=== PATIENT | female | born 1995 | race Two or more races ===

== ENCOUNTER 2019-08-13 10:02 | Observation (INO) | payer MEDICAID ==
[2019-08-13] MEDS ORDERED: PREN-96 PO (10:50)
[2019-08-13 11:08] LABS: Basophils # (auto) 0 10 ^3/uL (0-0.2); Basophils % (auto) 0.4 % (0.0-2.0); Eosinophils # (auto) 0.1 10 ^3/uL (0-0.8); Eosinophils % (auto) 0.7 % (0.0-7.0); Hematocrit 35.9 % (36.0-46.0); Hemoglobin 12.2 g/dL (12.2-16.2); Lymphocytes # (auto) 1.9 10 ^3/uL (0.4-5.4); Lymphocytes % (auto) 25.7 % (10.0-50.0); Mean Corpuscular Hemoglobin 30.8 pg (28.0-32.0); Mean Corpuscular Hgb Conc. 33.9 g/dL (32.0-36.0); Mean Corpuscular Volume 90.9 fL (80.0-100.0); Monocytes # (auto) 0.6 10 ^3/uL (0-1.3); Monocytes % (auto) 7.9 % (0.0-12.0); Neutrophils # (auto) 4.9 10 ^3/uL (1.6-8.6); Neutrophils % (auto) 65.3 % (37.0-80.0); Nucleated Red Blood Cells % 0.1 %; Platelet Count (auto) 252 10^3/uL (140-450); Red Blood Cells 3.95 10^6/uL (4.0-5.20); Red Cell Distribution Width 13.6 % (11.8-14.3); White Blood Cell 7.5 10^3/uL (4.4-10.8)
[2019-08-13 11:12] LABS: Urine Bacteria MANY /hpf (None Seen); Urine Blood 1+ /uL (Negative); Urine Mucus FEW (None Seen); Urine Specific Gravity 1.022 (1.001-1.035); Urine WBC 95 /hpf (0 - 5); Urine WBC Clumps PRESENT /hpf (None Seen)
[2019-08-13 11:24] LABS: INR 0.96 (0.9-1.15); Partial Thromboplastin Time 25.4 sec (23.64-32.05)
[2019-08-13 11:27] LABS: Albumin 2.4 g/dL (3.4-5.0); Calcium 8.7 mg/dL (8.5-10.1); Potassium 3.9 mmol/L (3.5-5.1); Uric Acid 5.3 mg/dL (2.6-6.0)
[2019-08-13 11:29] LABS: BUN/Creatinine Ratio 15.1; Bilirubin, Total 0.1 mg/dL (0.2-1.0); Total Protein 6.8 g/dL (6.4-8.2)
== END 2019-08-13 13:00 | disposition home or self-care (01) | DRG 566 ==
LOC: LDRP 10:02
PROVIDERS: ADMIT Obstetrics & Gynecology; ATTEND Obstetrics & Gynecology
DX: O13.9 Gestational [pregnancy-induced] hypertension without significant proteinuria, unspecified trimester (principal); Z3A.00 Weeks of gestation of pregnancy not specified
CPT/HCPCS: 36415; 59025; 80053; 81001; 81002; 84550; 85025; 85610; 85730; G0378

== ENCOUNTER 2019-08-17 09:33 | Observation (INO) | payer MEDICAID ==
[~2019-08-17] VITALS: Ht 162.6 cm; Wt 107.0 kg
[~2019-08-17 09:33] MED LIST: PREN-96 PO
[2019-08-17 10:11] LABS: Protein, Urine 28.7 mg/dL (0.0-11.9)
[2019-08-17 10:19] LABS: 24 Hr. Total Protein, Urine 817.9 mg/24 Hr (<149.1)
[2019-08-17] MEDS ORDERED: TERBUTALINE SULFATE 1 MG/ML 1ML VIAL SC ONE (11:00)
[2019-08-17] MEDS ORDERED: BETAMETHASONE ACET (6MG/ML) 5ML VIAL IM ONE (11:00)
== END 2019-08-17 12:00 | disposition home or self-care (01) | DRG 566 ==
LOC: LDRP 09:33
PROVIDERS: ADMIT Obstetrics & Gynecology; ATTEND Obstetrics & Gynecology
DX: O13.9 Gestational [pregnancy-induced] hypertension without significant proteinuria, unspecified trimester (principal); O60.00 Preterm labor without delivery, unspecified trimester; Z3A.00 Weeks of gestation of pregnancy not specified
CPT/HCPCS: 59025; 81002; 84156; 96372; G0378; J0702; J3105

== ENCOUNTER 2019-08-18 10:53 | Observation (INO) | payer MEDICAID ==
[2019-08-18] MEDS ORDERED: BETAMETHASONE ACET (6MG/ML) 5ML VIAL IM ONE (11:15)
== END 2019-08-18 12:57 | disposition home or self-care (01) | DRG 566 ==
LOC: LDRP 10:53
PROVIDERS: ADMIT Obstetrics & Gynecology; ATTEND Obstetrics & Gynecology
DX: O13.9 Gestational [pregnancy-induced] hypertension without significant proteinuria, unspecified trimester (principal); O60.00 Preterm labor without delivery, unspecified trimester; Z3A.00 Weeks of gestation of pregnancy not specified
CPT/HCPCS: 59025; 81002; 96372; G0378

== ENCOUNTER 2019-08-24 10:16 | Observation (INO) | payer MEDICAID ==
[2019-08-24 11:37] LABS: Basophils # (auto) 0 10 ^3/uL (0-0.2); Basophils % (auto) 0.4 % (0.0-2.0); Eosinophils # (auto) 0 10 ^3/uL (0-0.8); Eosinophils % (auto) 0.4 % (0.0-7.0); Hematocrit 35.4 % (36.0-46.0); Hemoglobin 12.2 g/dL (12.2-16.2); Lymphocytes # (auto) 2.3 10 ^3/uL (0.4-5.4); Lymphocytes % (auto) 22.6 % (10.0-50.0); Mean Corpuscular Hemoglobin 31.4 pg (28.0-32.0); Mean Corpuscular Hgb Conc. 34.6 g/dL (32.0-36.0); Mean Corpuscular Volume 90.9 fL (80.0-100.0); Monocytes # (auto) 0.6 10 ^3/uL (0-1.3); Monocytes % (auto) 6.1 % (0.0-12.0); Neutrophils % (auto) 70.5 % (37.0-80.0); Platelet Count (auto) 244 10^3/uL (140-450); Red Blood Cells 3.89 10^6/uL (4.0-5.20); Red Cell Distribution Width 13.4 % (11.8-14.3)
[2019-08-24 11:51] LABS: INR 0.94 (0.9-1.15); Partial Thromboplastin Time 24.8 sec (23.64-32.05)
[2019-08-24 11:56] LABS: Albumin 2.3 g/dL (3.4-5.0); Calcium 8.1 mg/dL (8.5-10.1); Potassium 3.8 mmol/L (3.5-5.1)
[2019-08-24 12:00] LABS: BUN/Creatinine Ratio 22.4; Bilirubin, Total 0.1 mg/dL (0.2-1.0); Total Protein 6.6 g/dL (6.4-8.2)
== END 2019-08-24 11:35 | disposition home or self-care (01) | DRG 563 ==
LOC: LDRP 10:16
PROVIDERS: ADMIT Specialist; ATTEND Specialist
DX: O60.00 Preterm labor without delivery, unspecified trimester (principal); Z3A.00 Weeks of gestation of pregnancy not specified
CPT/HCPCS: 36415; 76818; 80053; 81002; 84550; 85025; 85610; 85730; G0378; 59025

== ENCOUNTER 2019-09-02 10:15 | Observation (INO) | payer MEDICAID ==
[~2019-09-02] VITALS: Ht 162.6 cm; Wt 95.3 kg
[2019-09-02] MEDS ORDERED: BETAMETHASONE ACET (6MG/ML) 5ML VIAL IM ONE (11:45)
[2019-09-02] MEDS ORDERED: NIF10C PO (12:09)
== END 2019-09-02 12:05 | disposition home or self-care (01) | DRG 566 ==
LOC: LDRP 10:15
PROVIDERS: ADMIT Obstetrics & Gynecology; ATTEND Obstetrics & Gynecology
DX: O13.3 Gestational [pregnancy-induced] hypertension without significant proteinuria, third trimester (principal); Z3A.32 32 weeks gestation of pregnancy
CPT/HCPCS: 76818; 81002; 96372; G0378; J0702

== ENCOUNTER 2019-09-03 09:45 | Observation (INO) | payer MEDICAID ==
[~2019-09-03 09:45] MED LIST changes: +NIF10C PO
[2019-09-03 10:56] LABS: Basophils # (auto) 0 10 ^3/uL (0-0.2); Basophils % (auto) 0.4 % (0.0-2.0); Eosinophils # (auto) 0 10 ^3/uL (0-0.8); Eosinophils % (auto) 0.4 % (0.0-7.0); Hematocrit 35.5 % (36.0-46.0); Hemoglobin 11.8 g/dL (12.2-16.2); Lymphocytes # (auto) 2.3 10 ^3/uL (0.4-5.4); Lymphocytes % (auto) 24.3 % (10.0-50.0); Mean Corpuscular Hemoglobin 30.4 pg (28.0-32.0); Mean Corpuscular Hgb Conc. 33.2 g/dL (32.0-36.0); Mean Corpuscular Volume 91.7 fL (80.0-100.0); Monocytes # (auto) 0.6 10 ^3/uL (0-1.3); Monocytes % (auto) 6.5 % (0.0-12.0); Neutrophils # (auto) 6.6 10 ^3/uL (1.6-8.6); Neutrophils % (auto) 68.4 % (37.0-80.0); Platelet Count (auto) 227 10^3/uL (140-450); Red Blood Cells 3.87 10^6/uL (4.0-5.20); Red Cell Distribution Width 13.7 % (11.8-14.3); White Blood Cell 9.6 10^3/uL (4.4-10.8)
[2019-09-03 11:06] LABS: INR 0.91 (0.9-1.15); Partial Thromboplastin Time 25.6 sec (23.64-32.05)
[2019-09-03 11:08] LABS: Urine Bacteria MOD /hpf (None Seen); Urine Blood TRACE /uL (Negative); Urine Mucus FEW (None Seen); Urine Specific Gravity 1.017 (1.001-1.035); Urine WBC 56 /hpf (0 - 5)
[2019-09-03 11:15] LABS: Calcium 8.1 mg/dL (8.5-10.1); Potassium 3.7 mmol/L (3.5-5.1)
[2019-09-03 11:18] LABS: Bilirubin, Total 0.2 mg/dL (0.2-1.0); Total Protein 6.4 g/dL (6.4-8.2); Uric Acid 6.1 mg/dL (2.6-6.0)
== END 2019-09-03 12:07 | disposition home or self-care (01) | DRG 566 ==
LOC: LDRP 09:45
PROVIDERS: ADMIT Specialist; ATTEND Specialist
DX: O13.3 Gestational [pregnancy-induced] hypertension without significant proteinuria, third trimester (principal); Z3A.32 32 weeks gestation of pregnancy
CPT/HCPCS: 36415; 59025; 80053; 81001; 84550; 85025; 85610; 85730; G0378

== ENCOUNTER 2019-09-05 09:17 | Observation (INO) | payer MEDICAID ==
[2019-09-05 10:03] LABS: Urine Bacteria NONE SEEN /hpf (None Seen); Urine Blood Negative /uL (Negative); Urine Specific Gravity 1.013 (1.001-1.035); Urine WBC 18 /hpf (0 - 5)
[2019-09-05 11:43] LABS: Basophils # (auto) 0 10 ^3/uL (0-0.2); Basophils % (auto) 0.2 % (0.0-2.0); Eosinophils # (auto) 0 10 ^3/uL (0-0.8); Eosinophils % (auto) 0.6 % (0.0-7.0); Hematocrit 35.9 % (36.0-46.0); Hemoglobin 11.8 g/dL (12.2-16.2); Lymphocytes # (auto) 2.7 10 ^3/uL (0.4-5.4); Lymphocytes % (auto) 33.4 % (10.0-50.0); Mean Corpuscular Hemoglobin 30.1 pg (28.0-32.0); Mean Corpuscular Hgb Conc. 32.7 g/dL (32.0-36.0); Mean Corpuscular Volume 91.8 fL (80.0-100.0); Monocytes # (auto) 0.6 10 ^3/uL (0-1.3); Monocytes % (auto) 6.9 % (0.0-12.0); Neutrophils # (auto) 4.7 10 ^3/uL (1.6-8.6); Neutrophils % (auto) 58.9 % (37.0-80.0); Nucleated Red Blood Cells % 0.1 %; Platelet Count (auto) 229 10^3/uL (140-450); Red Blood Cells 3.91 10^6/uL (4.0-5.20); Red Cell Distribution Width 13.9 % (11.8-14.3)
[2019-09-05 11:54] LABS: INR 0.92 (0.9-1.15); Partial Thromboplastin Time 25.4 sec (23.64-32.05)
[2019-09-05 11:59] LABS: Calcium 8.2 mg/dL (8.5-10.1); Potassium 3.8 mmol/L (3.5-5.1)
[2019-09-05 12:03] LABS: BUN/Creatinine Ratio 18.6; Bilirubin, Total 0.1 mg/dL (0.2-1.0); Total Protein 6.3 g/dL (6.4-8.2); Uric Acid 5.6 mg/dL (2.6-6.0)
== END 2019-09-05 12:25 | disposition home or self-care (01) | DRG 566 ==
LOC: LDRP 09:17
PROVIDERS: ADMIT Obstetrics & Gynecology; ATTEND Obstetrics & Gynecology
DX: O13.3 Gestational [pregnancy-induced] hypertension without significant proteinuria, third trimester (principal); O60.03 Preterm labor without delivery, third trimester; Z3A.32 32 weeks gestation of pregnancy
CPT/HCPCS: 36415; 59025; 76818; 80053; 81001; 81002; 84156; 84550; 85025; 85610; 85730; G0378

== ENCOUNTER 2019-09-07 13:27 | Observation (INO) | payer MEDICAID | END 2019-09-07 16:40 | disposition home or self-care (01) | DRG 566 | LOC: LDRP 13:27 | PROVIDERS: ADMIT Specialist; ATTEND Specialist | DX: O13.3 Gestational [pregnancy-induced] hypertension without significant proteinuria, third trimester (principal); Z3A.33 33 weeks gestation of pregnancy | CPT/HCPCS: 76818; 81002; G0378 ==

== ENCOUNTER 2019-09-10 13:44 | Inpatient (IN) | payer MEDICAID ==
[~2019-09-10] VITALS: Ht 162.6 cm; Wt 104.3 kg
[2019-09-10] VITALS (7 sets, daily range): BP systolic 138–147; BP diastolic 72–88
[2019-09-10] MEDS ORDERED: ACET-1156 PO (15:18)
[2019-09-10 15:57] LABS: Basophils # (auto) 0 10 ^3/uL (0-0.2); Basophils % (auto) 0.3 % (0.0-2.0); Eosinophils # (auto) 0 10 ^3/uL (0-0.8); Eosinophils % (auto) 0.6 % (0.0-7.0); Hemoglobin 12.3 g/dL (12.2-16.2); Lymphocytes # (auto) 2.6 10 ^3/uL (0.4-5.4); Lymphocytes % (auto) 32.6 % (10.0-50.0); Mean Corpuscular Hemoglobin 30.6 pg (28.0-32.0); Mean Corpuscular Hgb Conc. 33.3 g/dL (32.0-36.0); Mean Corpuscular Volume 91.9 fL (80.0-100.0); Monocytes # (auto) 0.7 10 ^3/uL (0-1.3); Monocytes % (auto) 8.4 % (0.0-12.0); Neutrophils # (auto) 4.6 10 ^3/uL (1.6-8.6); Neutrophils % (auto) 58.1 % (37.0-80.0); Platelet Count (auto) 231 10^3/uL (140-450); Red Blood Cells 4.02 10^6/uL (4.0-5.20); Red Cell Distribution Width 14.2 % (11.8-14.3); White Blood Cell 7.9 10^3/uL (4.4-10.8)
[2019-09-10 15:59] LABS: Urine Bacteria FEW /hpf (None Seen); Urine Blood Negative /uL (Negative); Urine Hyaline Cast FEW /lpf (0 - 2); Urine Specific Gravity 1.012 (1.001-1.035); Urine WBC 14 /hpf (0 - 5)
[2019-09-10] MEDS ORDERED: LACTATED RINGER'S 1,000 ML IV SCH ×3 (16:00→19:18)
[2019-09-10 16:07] LABS: INR 0.89 (0.9-1.15); Partial Thromboplastin Time 26.5 sec (23.64-32.05)
[2019-09-10 16:12] LABS: Albumin 1.8 g/dL (3.4-5.0); Anion Gap 8 (5-15); Blood Urea Nitrogen 13 mg/dL (7-18); Calcium 7.9 mg/dL (8.5-10.1); Carbon Dioxide 23 mmol/L (21-32); Chloride 108 mmol/L (98-107); Glucose 92 mg/dL (74-106); Potassium 3.9 mmol/L (3.5-5.1); Sodium 139 mmol/L (136-145)
[2019-09-10 16:15] LABS: Alanine Aminotransferase 20 U/L (13-56); Alkaline Phosphatase 105 U/L (45-117); Aspartate Aminotransferase 18 U/L (15-37); Bilirubin, Total < 0.1 mg/dL (0.2-1.0); GFR African American 152 mL/min; GFR Non-African American 126 mL/min; Uric Acid 6.9 mg/dL (2.6-6.0)
[2019-09-10] MEDS ORDERED: MAGNESIUM SULFATE 40MG/ML 1,000 ML IV SCH (16:35)
[2019-09-10] MEDS ORDERED: MAGNESIUM SULFATE 100 ML IV STA (16:35)
[2019-09-10] MEDS ORDERED: MAGNESIUM SULFATE 40MG/ML 1,000 ML IV ONE (16:40)
[2019-09-10] MEDS ORDERED: MAGNESIUM SULFATE 100 ML IV ONE (16:40)
[2019-09-10] MEDS ORDERED: ceFAZolin 1GM/50ML 50 ML IV ONE (17:00)
[2019-09-10] MEDS ORDERED: TETRACAINE 1% INJ 2 ML VIAL IJ ONE (17:57)
[2019-09-10] MEDS ORDERED: MORPHINE SULF(PF) 0.5MG/ML 10ML VIAL ONE (18:03)
[2019-09-10] MEDS ORDERED: ePHEDrine SULFATE 50 MG/ML AMP ONE (18:05)
[2019-09-10] MEDS ORDERED: PHENYLEPHRINE HCL 10 MG/ML VL ONE (18:05)
[2019-09-10] MEDS ORDERED: ceFAZolin 1GM VL ONE (18:06)
[2019-09-10] MEDS ORDERED: oxyTOCIN 10 UNIT/ML 10ML VIAL ONE (18:07)
[2019-09-10] MEDS ORDERED: METOCLOPRAMIDE HCL 5MG/ml INJ 2ml VIAL ONE (18:33)
[2019-09-10] MEDS ORDERED: MIDAZOLAM HCL 1MG/1ML-2 ML VIAL ONE (18:46)
[2019-09-10] MEDS ORDERED: SODIUM CHLORIDE LOCK 10 ML ONE (19:01)
[2019-09-10 19:07] LABS: Alcohol, Urine < 3.0 mg/dL (0-5); Amphetamine Screen, Urine NEGATIVE (NEGATIVE); Barbiturate Scree,Urine NEGATIVE (NEGATIVE); Benzodiazephine Screen, Urine NEGATIVE (NEGATIVE); Cannabinoid Screen, Urine NEGATIVE (NEGATIVE); Cocaine Screen, Urine NEGATIVE (NEGATIVE); Opiate Scree,Urine NEGATIVE (NEGATIVE); Phencyclidine Screen, Urine NEGATIVE (NEGATIVE)
[2019-09-10] MEDS ORDERED: diphenhdrAMINE HCL 50 MG/1 ML VL IV PRN (19:15)
[2019-09-10] MEDS ORDERED: ONDANSETRON HCL 4 MG/2 ML VIAL IV PRN ×3 (19:15→19:30)
[2019-09-10] MEDS ORDERED: ePHEDrine SULFATE 50 MG/ML AMP IV PRN (19:15)
[2019-09-10] MEDS ORDERED: HYDROmorphone HCL 2 MG/ML VL IV PRN (19:15)
[2019-09-10] MEDS ORDERED: NALOXONE HCL 0.4 MG/ML VIAL IV PRN ×2 (19:15)
[2019-09-10] MEDS ORDERED: ACETAMINOPHEN IV 1000 MG/100ML (10MG/ML) IV PRN (19:30)
--- NOTE | 2019-09-10 20:12 | NUR ---
Received female patient from PACU, vis hospital bed. Bedside report received and Patient's fundus and dressing checked by this RN and AnanyaRN, Fundus firm 2 fingers below the umb. lochia is scant, wright catheter in place and draining, IV to infusing as ordered, Sequential stockings in place and inflating, Pt placed Blood pressure machine with scheduled intervals at each hour. Oriented pt to hospital room and placed call mandujano within reach, instructed to notify staff if exp any problems or has any concerns, No distress noted will continue to monitor
[2019-09-10] MEDS: HYDROmorphone HCL 2 MG/ML VL IV PRN (22:14)
[2019-09-10] MEDS: ceFAZolin 1GM/50ML 50 ML IV SCH (22:14)
[2019-09-11] VITALS (10 sets, daily range): BP systolic 138–151; BP diastolic 68–93
--- NOTE | 2019-09-11 00:01 | NUR ---
Report given to quinten Arellano RN and care relinquished
[2019-09-11] MEDS: HYDROmorphone HCL 2 MG/ML VL IV PRN ×2 (03:31→10:31)
[2019-09-11] MEDS: ceFAZolin 1GM/50ML 50 ML IV SCH ×2 (03:31→12:09)
[2019-09-11 06:26] LABS: Basophils # (auto) 0 10 ^3/uL (0-0.2); Basophils % (auto) 0.2 % (0.0-2.0); Eosinophils # (auto) 0 10 ^3/uL (0-0.8); Eosinophils % (auto) 0.2 % (0.0-7.0); Hematocrit 36.1 % (36.0-46.0); Hemoglobin 11.6 g/dL (12.2-16.2); Lymphocytes # (auto) 2.9 10 ^3/uL (0.4-5.4); Lymphocytes % (auto) 26.8 % (10.0-50.0); Mean Corpuscular Hemoglobin 29.5 pg (28.0-32.0); Mean Corpuscular Volume 92.2 fL (80.0-100.0); Monocytes # (auto) 0.6 10 ^3/uL (0-1.3); Monocytes % (auto) 5.5 % (0.0-12.0); Neutrophils # (auto) 7.4 10 ^3/uL (1.6-8.6); Neutrophils % (auto) 67.3 % (37.0-80.0); Platelet Count (auto) 203 10^3/uL (140-450); Red Blood Cells 3.92 10^6/uL (4.0-5.20); Red Cell Distribution Width 14.1 % (11.8-14.3)
[2019-09-11 06:41] LABS: Albumin 1.7 g/dL (3.4-5.0); Calcium 7.5 mg/dL (8.5-10.1)
[2019-09-11 06:45] LABS: BUN/Creatinine Ratio 14.5; Bilirubin, Total 0.2 mg/dL (0.2-1.0); Total Protein 5.7 g/dL (6.4-8.2)
--- NOTE | 2019-09-11 07:20 | NUR ---
DR. PARK AT BEDSIDE AND AWARE OF BLOOD PRESSURE 146/81 AND STATES CALL IF BLOOD PRESSURE IS 160 ORHIGHER ON SYSTOLIC AND DIASTOLIC 95 OR GREATER.. Addendum: 09/11/19 at 0850 by Tyler Mi RN Amended: Links added.
--- NOTE | 2019-09-11 14:00 | NUR ---
Wright catheter dc'd Order to discontinue wright catheter. Wright dc'd with clean technique following deflation of balloon. Patient tolerated well with no complaints of pain. Continue care.
--- NOTE | 2019-09-11 14:00 | NUR ---
Discharge: Discharge instructions given as ordered. Pt encouraged to follow up with DIECAST MACHINE OPERATOR as instructed. All questions and concerns addressed. Patient verbalized understanding. Medication reconciliation completed and copy given to patient. Patient refused t-dap vaccine Patient encouraged to prepare to depart unit. Addendum: 09/11/19 at 1502 by Tyler Mi RN disregard note wrong patient.
[2019-09-11] MEDS ORDERED: HYDROcodone-ACET 5/325MG TAB PO PRN (15:00)
[2019-09-11] MEDS ORDERED: BISACODYL 10 MG RECT SUPP PR PRN (15:00)
--- NOTE | 2019-09-11 15:29 | NUR ---
REPORT GIVEN TO CHARLA LINARES
--- NOTE | 2019-09-11 15:30 | NUR ---
Updated patient on new orders for pain management (norco, motrin), mylicon, colace. Informed of side effects and purpose. Educated on PIH, increased risk of PIH with next , need to inform next OB Abad PIH history. Informed of need to ambulate and call for assistance. Will ambulate in one hour after medication decreases pain. Need to void within 6 hours of wright being removed, patient needs to void before 2000 tonight. educated on importance of ambulated to reduce risk of blood clots, and pneumonia. Verbalized understanding of all information.
[2019-09-11] MEDS: HYDROcodone-ACET 5/325MG TAB PO PRN ×2 (15:33→19:37)
--- NOTE | 2019-09-11 15:51 | NUR ---
Pt stated her IV in her right wrist was causing her pain. Flushed IV in left hand, 20g patent. D/C'd IV in right wrist. Cath intact. Pressure dressing secured to site. patient tolerated well.
--- NOTE | 2019-09-11 16:15 | NUR ---
Pt ambulated to restroom with steady gait. Standby assist of RN. Bladimir performed with minimal assist. Scant bleeding. Void without difficulty 400ml clear yellow urine. Tolerated well. Ambulated in hallway with steady gait. Mother of patient ambulated with patient in hallway.
--- NOTE | 2019-09-11 17:00 | NUR ---
Assisted patient back to bed. Side rails up x2, bed low, call light in reach, SCD's placed on BLE. Pain 06/15. Tolerable.
--- NOTE | 2019-09-11 17:30 | NUR ---
Given breast pump to mother. Educated on proper use, cleaning, storing of milk. Demonstrated proper technique. Educated on the importance of and need to pump every 3 hours. [facility] NICU called. Informed of patient request to pump and have family deliver milk to [place]. [facility]'s verbalized understanding and agrees to having the milk delivered to the facility.
[2019-09-11] MEDS: SIMETHICONE 80 MG CHEWABLE TABLET PO SCH ×2 (17:33→22:22)
--- NOTE | 2019-09-11 18:05 | NUR ---
Report given to Caridad Bourgeois, care relinquished to MILAGROS.
[2019-09-11] MEDS: DOCUSATE SOD 100 MG CAP PO SCH (22:22)
[2019-09-11] MEDS: IBUPROFEN 800 MG TAB PO PRN (22:25)
[2019-09-12] MEDS: HYDROcodone-ACET 5/325MG TAB PO PRN ×5 (02:09→21:52)
[2019-09-12 03:20] VITALS: BP 135/86
[2019-09-12 04:10] LABS: RPR Non Reactive (Non Reactive)
[2019-09-12] MEDS: SIMETHICONE 80 MG CHEWABLE TABLET PO SCH ×4 (05:53→21:51)
--- NOTE | 2019-09-12 06:05 | NUR ---
Report received from Caridad Govea RN on stable pt. Assumed care. Addendum: 09/12/19 at 0623 by Ana Myers RN Amended: Links added.
[2019-09-12 06:34] VITALS: BP 130/77
--- NOTE | 2019-09-12 06:34 | NUR ---
Lower abdominal incision dressing removed, incision well approximated with briseida intact. No redness, drainage, or bleeding noted. Abdominal binder in place. Incentive spirometer at bedside. Pt educated on use and importance of using at least 10 x per hour while awake. Pt educated on importance of ambulation and encouraged to ambulate in hallway at least 1 time per shift. Pt verbalizes understanding of teaching. Addendum: 09/12/19 at 0755 by Ana Myers RN Amended: Links added.
[2019-09-12] MEDS: IBUPROFEN 800 MG TAB PO PRN ×2 (08:40→17:34)
--- NOTE | 2019-09-12 09:20 | NUR ---
ALYSSIA, FORENSIC ECONOMIST FROM [facility] CALLED AND LEFT HER NUMBER FOR THE PT TO CONTACT HER. SHE STATES IT'S JUST ROUTINE IF THE PT DESIRE TO SPEAK WITH HER. Addendum: 09/12/19 at 0924 by Jessica Lamb RN PHONE NUMBER LEFT BY ALYSSIA, .
[2019-09-12] MEDS: DOCUSATE SOD 100 MG CAP PO SCH ×2 (09:40→21:51)
[2019-09-12] MEDS ORDERED: DOCUSATE CALCIUM 240 MG CAP PO SCH (10:00)
--- NOTE | 2019-09-12 10:00 | NUR ---
Pt ambulating in hallway with steady gait. No signs of distress or discomfort noted.
[2019-09-12 10:55] VITALS: BP 128/84
--- NOTE | 2019-09-12 12:00 | NUR ---
Pt ambulating in hallway with steady gait. No signs of distress or discomfort noted.
[2019-09-12 15:30] VITALS: BP 142/85
--- NOTE | 2019-09-12 18:16 | NUR ---
Report given to Solo Nam RN on stable pt. Relinquished care. Addendum: 09/12/19 at 1818 by Ana Myers RN Amended: Links added.
[2019-09-12 19:30] VITALS: BP 132/66
--- NOTE | 2019-09-12 22:50 | NUR ---
HAND OFF REPORT ON STABLE PT GIVEN TO Anu MONTEZ.
[2019-09-12 23:00] VITALS: BP 140/81
[2019-09-13 03:00] VITALS: BP 145/86
[2019-09-13] MEDS: HYDROcodone-ACET 5/325MG TAB PO PRN (03:07)
[2019-09-13] MEDS: SIMETHICONE 80 MG CHEWABLE TABLET PO SCH (05:29)
[2019-09-13 06:45] VITALS: BP 130/77
--- NOTE | 2019-09-13 09:30 | NUR ---
Dr. Gautam at bedside and states okay to discharge patient and take out briseida from incision site. briseida taken out and steri strips in place.
--- NOTE | 2019-09-13 09:41 | NUR ---
Discharge: Discharge instructions given as ordered. Pt encouraged to follow up with PARKING ANALYST as instructed. All questions and concerns addressed. Patient verbalized understanding. Medication reconciliation completed and copy given to patient. Patient encouraged to prepare to depart unit.
--- NOTE | 2019-09-13 09:48 | NUR ---
Discharge: Patient taken to vehicle via wheelchair with all personal belongings, accompanied by staff and family member. No distress noted at time of departure, no adverse changes in status since initial assessment.
== END 2019-09-13 09:48 | disposition home or self-care (01) | DRG 540 ==
LOC: LDRP 13:44 → OBSVTOIN 15:11 → LDRP 22:03
PROVIDERS: ADMIT Specialist; ATTEND Specialist
PROC: 10D00Z1 Extraction of Products of Conception, Low, Open Approach (ICD-10-PCS; principal; 2019-09-10 18:12)
DX: O14.14 Severe pre-eclampsia complicating childbirth (principal); O60.14X0 Preterm labor third trimester with preterm delivery third trimester, not applicable or unspecified; E66.9 Obesity, unspecified; O99.214 Obesity complicating childbirth; O69.81X0 Labor and delivery complicated by cord around neck, without compression, not applicable or unspecified; O76 Abnormality in fetal heart rate and rhythm complicating labor and delivery; O99.52 Diseases of the respiratory system complicating childbirth; O99.62 Diseases of the digestive system complicating childbirth; J45.909 Unspecified asthma, uncomplicated; K21.9 Gastro-esophageal reflux disease without esophagitis; Z37.0 Single live birth; Z3A.33 33 weeks gestation of pregnancy
CPT/HCPCS: 36415; 51702; 59025; 76805; 76818; 80053; 80307; 81001; 81002; 83735; 84112; 84550; 85025; 85610; 85730; 86592; 86850; 86900; 86901; 96361; 96365; 96366; 96375; G0378; J0690; J2250; J2590

== ENCOUNTER 2019-10-30 13:10 | Emergency (ER) | payer MEDICAID ==
[~2019-10-30] VITALS: Ht 162.6 cm; Wt 101.6 kg
[~2019-10-30 13:10] MED LIST changes: -NIF10C PO
[2019-10-30 15:51] VITALS: BP 121/67
== END 2019-10-30 15:53 | disposition home or self-care (01) ==
LOC: ER 13:10
DX: H57.12 Ocular pain, left eye (principal); R51 Headache
CPT/HCPCS: 70450; 70480

== ENCOUNTER 2020-01-10 22:32 | Emergency (ER) | payer MEDICAID ==
[~2020-01-10] VITALS: Ht 162.6 cm; Wt 106.1 kg
[2020-01-10 23:50] LABS: Basophils # (auto) 0.1 10 ^3/uL (0-0.2); Basophils % (auto) 0.8 % (0.0-2.0); Eosinophils # (auto) 0 10 ^3/uL (0-0.8); Eosinophils % (auto) 0.1 % (0.0-7.0); Hematocrit 37.5 % (36.0-46.0); Hemoglobin 12.4 g/dL (12.2-16.2); Lymphocytes # (auto) 1.8 10 ^3/uL (0.4-5.4); Lymphocytes % (auto) 19.2 % (10.0-50.0); Mean Corpuscular Hemoglobin 27.8 pg (28.0-32.0); Mean Corpuscular Volume 84.3 fL (80.0-100.0); Monocytes # (auto) 0.5 10 ^3/uL (0-1.3); Monocytes % (auto) 5.8 % (0.0-12.0); Neutrophils % (auto) 74.1 % (37.0-80.0); Platelet Count (auto) 416 10^3/uL (140-450); Red Blood Cells 4.46 10^6/uL (4.0-5.20); Red Cell Distribution Width 15.9 % (11.8-14.3); White Blood Cell 9.4 10^3/uL (4.4-10.8)
[2020-01-11 00:06] LABS: Albumin 3.5 g/dL (3.4-5.0); BUN/Creatinine Ratio 17.9; Calcium 8.8 mg/dL (8.5-10.1); Potassium 3.4 mmol/L (3.5-5.1)
[2020-01-11 00:09] LABS: Bilirubin, Total 0.5 mg/dL (0.2-1.0); Total Protein 7.6 g/dL (6.4-8.2)
[2020-01-11 02:59] VITALS: BP 125/67
[2020-01-11] MEDS ORDERED: MORPHINE SULFATE 4 MG/ML SYR/VIAL IV ONE (03:30)
[2020-01-11] MEDS ORDERED: SODIUM CHLORIDE 0.9% 1,000 ML IV ONE (03:30)
[2020-01-11] MEDS ORDERED: ONDANSETRON HCL 4 MG/2 ML VIAL IV ONE (03:30)
== END 2020-01-11 07:05 | disposition home or self-care (01) ==
LOC: ER 22:34
DX: R79.89 Other specified abnormal findings of blood chemistry (principal); K75.9 Inflammatory liver disease, unspecified; Z20.828 Contact with and (suspected) exposure to other viral communicable diseases
CPT/HCPCS: 36415; 71045; 74176; 80053; 82150; 82728; 83690; 84702; 85025; 87426; 96361; 96374; 96375; 99285; J2270; J2405